=== PATIENT | female | born 1970 ===

== ENCOUNTER 2020-09-21 13:43 | Outpatient (REF) | payer BC, SELFPAY | END 2020-09-21 13:44 | disposition home or self-care (01) | LOC: HO.LAB 13:43 | PROVIDERS: Visit Provider Internal Medicine | DX: Z20.828 Contact with and (suspected) exposure to other viral communicable diseases (principal) | CPT/HCPCS: C9803; U0003 ==

== ENCOUNTER 2023-07-16 09:40 | Emergency (ER) | payer SELFPAY ==
[2023-07-16 09:44] VITALS: BP 138/75; PULSE 80; RESP 18; TEMP 35.8; O2SAT 100; BMI 29.8
--- NOTE | 2023-07-16 10:19 | ED_ITS ---
HPI - General Adult General Chief complaint: General Medical Stated complaint: high BP Time Seen by Provider: 07/16/23 10:11 Source: patient Mode of arrival: ambulatory Limitations: no limitations History of Present Illness HPI narrative: 52 year old female with no significant past medical history presents to the ED for evaluation of elevated BP. 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 Endorses nausea at present otherwise no complaints. Denies LOC, HUGO, vision changes, chest pain, cough, wheezing, shortness breath, palpitations, lower extremity pain or swelling. No sick contacts. No personal history of HTN or VTE . Reports familial history of HTN. Not on any medications. No recent travel or long car rides. Not on OCP. No concern for . Not sexually active. Related Data Previous Rx's Medication Instructions Recorded ondansetron HCl 4 mg tablet 4 mg PO .prn PRN nausea and 07/16/23 vomiting #10 tabs Allergies Allergy/AdvReac Type Severity Reaction Status Date / Time No Known Allergies Allergy Verified 07/16/23 09:44 Review of Systems Review of Systems: Constitutional: No fever, chills, fatigue, night sweats, weight changes ENT/Mouth: No ear pain, hearing loss, nasal congestion, sinus pain, rhinorrhea, sore throat Eyes: No eye pain, swelling, redness, vision changes, discharge Cardio: No chest pain, palpitations, SALEH, orthopnea, peripheral edema Pulm: No SOB, cough, sputum, wheezing, dyspnea, hemoptysis GI: + nausea, No vomiting, hematemesis, abdominal pain, diarrhea, constipation, hematochezia, melena : No irregular bleeding, dysuria, frequency, urgency, hesitancy, hematuria, flank pain MSK: No back pain, neck pain, joint pain, myalgias Skin: No lesions, rashes Neuro: No weakness, numbness, paresthesias, LOC, dizziness, headache All other systems reviewed and are negative. [facility] Past Medical History Attestation statement: The following information was validated with the patient. Source: old records reviewed and nursing notes reviewed Social History Social History Smoked in Last 30 Days: No Use of substances other than those prescribed or required for medical reasons: No Advance Directives: No Physical Exam ED Vital Signs: Vital Signs - 24 hr 07/16/23 09:44 07/16/23 11:06 Temperature 96.5 F L 97.8 F Pulse Rate 80 78 Respiratory Rate 18 18 Blood Pressure 138/75 133/77 Pulse Oximetry 100 99 Oxygen Delivery Method Room Air Room Air BMI result Body Mass Index 29.8 Vital signs are stable. Const General: cooperative, no acute distress, alert and awake; No diaphoretic Orientation/consciousness: patient oriented x3 Limitations: no limitations HENMT Head: Yes normal to inspection Ears: hearing grossly normal bilaterally General nose exam: Normal external nose present Mouth: Normal oral and palatal mucosa present and moist mucous membranes Throat: Yes posterior oropharynx normal, Yes tonsils normal and Yes uvula mid line Eyes General: appearance normal, both eyes and all related structures Conjunctivae: conjunctivae normal Sclerae: sclerae normal Pupils: Equal, round and reactive pupils present EOM: EOMs intact bilaterally Direct Ophthalmoscopy: normal light reflex, no photophobia, no papilledema, fundi normal bilaterally and anterior chamber normal Neck Neck: Yes normal visual inspection, Yes no lymphadenopathy, Yes no meningeal signs and Yes no JVD Thyroid: Thyroid normal Carotids: normal carotid upstroke Resp Effort & Inspection: normal respiratory effort Auscultation: clear to auscultation bilaterally Cardio Rate: regular rate Rhythm: regular rhythm Heart sounds: S1 normal heart sound present and S2 normal heart sound present Peripheral pulses: Peripheral pulses 2+ throughout GI Inspection: Yes normal to inspection Palpation (GI): Soft to palpation and no pulsatile masses Skin General skin exam: no rashes or lesions noted Neuro General: patient oriented x3, gait normal, moves all extremities and no meningeal signs Cranial nerves: Yes CN's II-XII intact bilaterally and Yes Equal, round and reactive pupils present Gait exam (Neuro): Normal gait present Coordination: [id number] test normal, [id number] test normal and Normal rapid alternating movements of the distal upper extremity present (Neuro) Pupils: Normal pupillary reactivity/response: bilateral Extrem General: Yes normal to inspection, Yes capillary refill normal and Yes no clubbing, cyanosis or edema Course Course Course Narrative: On evaluation of patient, she is in NAD with stable vital signs. As her symptoms lasted only a few moments and have resolved in ED with nonfocal exam, I do not believe further work up is necessary at this time. I have advised patient to follow up with her primary care provider this week regarding her symptoms and/or formal diagnosis of hypertension. Discussed strict return precautions. All questions are answered at this time. Patient agreeable with disposition and stable for discharge. Medications Administered Discontinued Medications Generic Name Dose Route Start Last Admin Trade Name Freq PRN Reason Stop Dose Admin Ondansetron HCl 4 mg 07/16/23 10:40 07/16/23 11:05 Ondansetron Odt 4 Mg Tab.Rapdis TRANSLINGU 07/16/23 10:41 4 mg ONCE ONE Administration Medical Decision Making Medical Decision Making MDM Narrative: 52 year old female with no significant past medical history presents to the ED for evaluation of elevated BP. Vital signs are stable, normotensive and afebrile. Not tachycardic. Patient is nontoxic appearing and in NAD. RRR, no murmurs, rubs or gallops. Lungs are CTA b/l. Negative kaitlin sign b/l. NV intact distally. Exam non focal. Cerebellum intact. Clinical concern for elevated blood pressure vs anxiety. Unlikely hypertensive emergency/urgency, vertigo, cerebellar stroke, CVA/TIA, ACS, arrhythmia, PE, viral syndrome. Differential Diagnosis Differential Diagnoses: The differential diagnosis associated with the presentation includes As above. Admission/Observation Not indicated. External Record Review External record reviewed: Inpatient record Social Determinants Patient?s care significantly limited by Social Determinants of Health including: Other Social Determinant of Health Critical Care Time Critical Care Time Critical Care Time: No Discharge Plan Discharge Clinical Impression: Elevated BP without diagnosis of hypertension Patient Disposition: Home, Self-Care Instructions: Heart Healthy Diet (ED), DASH Eating Plan (ED), Hypertension (ED) Additional Instructions: Your blood pressure was normal today in the ED. Your physical exam was benign. Zofran has been sent to pharmacy. Take this as needed for nausea. Please follow up with your primary care provider regarding this visit. If you do not have a primary care provider one has been referred to you. Call them to make an appointment. They will not call you. If your symptoms persist or worsen, return to the emergency department. In the case of emergency call 911. Prescriptions: New ondansetron HCl 4 mg tablet 4 mg PO .prn PRN (Reason: nausea and vomiting) Qty: 10 0RF Referrals: [facility] [Provider Group] [facility] [place] [facility] [Provider Group] [facility] [place] [Provider Group] Physician,None [Primary Care Provider] - Stand Alone Forms: Work/School Release Interventions: ED Discharge Assessment Last Done: 07/16/23 11:11 Discharge Date/Time: 07/16/23 11:00
--- NOTE | 2023-07-16 11:02 | PC.NURSE ---
aox4. denies dizziness/sob/cp. nausea. no vomiting. talks w/o issue. sitting at bedside w/o difficulty
[2023-07-16] MEDS: Ondansetron ODT 4 MG TAB.RAPDIS TRANSLINGU (11:05)
[2023-07-16 11:06] VITALS: BP 133/77; PULSE 78; RESP 18; TEMP 36.6; O2SAT 99
== END 2023-07-16 11:00 | disposition home or self-care (01) ==
PROVIDERS: Emergency Provider Emergency Medicine
DX: I10 Essential (primary) hypertension (principal); R11.2 Nausea with vomiting, unspecified; R42 Dizziness and giddiness
CPT/HCPCS: 99283; 99284